=== PATIENT | male | born 1955 | race Caucasian/White ===

== ENCOUNTER 2022-07-18 13:55 | Emergency (ER) | payer MEDICARE, OTHER ==
[2022-07-18 14:56] LABS: ESTIMATED GFR 89 mL/min (>60)
== END 2022-07-18 15:30 | disposition home or self-care (01) ==
LOC: LB.ED 13:55
DX: R10.13 Epigastric pain (principal); R20.2 Paresthesia of skin
CPT/HCPCS: 36415; 80053; 83735; 84484; 85025; 93005; 99283